=== PATIENT | female | born 1975 | race Caucasian/White ===

== ENCOUNTER 2016-05-23 22:51 | Inpatient (IN) | payer BC ==
[~2016-05-23] VITALS: Ht 167.6 cm; Wt 82.0 kg
[2016-05-23 23:03] VITALS: BP 129/72
[2016-05-23] MEDS ORDERED: PRENTAB9 PO (23:11)
[2016-05-23] MEDS ORDERED: LEVO88TA3 PO (23:11)
[2016-05-24] VITALS (56 sets, daily range): BP systolic 80–136; BP diastolic 49–76
[2016-05-24] MEDS ORDERED: FENTANYL 2MCG/ML ROPIVACAINE 0.2% NACL 250 ML CADD As Ordered ONE (00:01)
[2016-05-24] MEDS ORDERED: LR 1,000 ML IV SCH (00:23)
[2016-05-24] MEDS ORDERED: LACTATED RINGER'S 1000 ML IV STA (00:23)
[2016-05-24 00:52] LABS: MEAN CORPUSCULAR HEMOGLOBIN 31.9 pg (27.0-33.0); MEAN CORPUSCULAR HGB CONC 33.5 g/dl (32.0-36.5); MEAN CORPUSCULAR VOLUME 95.1 fl (80.0-96.0); RED CELL DISTRIBUTION WIDTH 13.5 % (11.5-14.5); WHITE BLOOD COUNT 11.9 K/mm3 (4.0-10.0)
--- NOTE | 2016-05-24 07:20 | HPE ---
DATE OF ADMISSION: 05/23/2016 REASON FOR ADMISSION: Labor. HISTORY OF PRESENT ILLNESS: Mrs. Wallace is a 40-year-old, 3, para 1, who presents at 40 weeks 0 days estimated gestational age by last menstrual period confirmed by a first trimester ultrasound with complaints of increasing contractions. She reports contractions which had started earlier throughout the afternoon and had increased in intensity and frequency throughout the evening. She reports active movement. She denies any vaginal bleeding or leakage of fluid. The course is only remarkable for advanced maternal age and hypothyroidism which has been well controlled. Her care was initiated in the first trimester and has been appropriate throughout. PAST MEDICAL HISTORY: Hypothyroidism. PAST SURGICAL HISTORY: She has had a dilation and curettage for a miscarriage. MEDICATIONS: - levothyroxine - vitamins ALLERGIES: No known drug allergies. OBSTETRICAL HISTORY: She is a 3, para 1. She has had 1 term vaginal delivery that was assisted with the vacuum. She is proven to 8 pounds 7 ounces. She has had a miscarriage. SOCIAL HISTORY: Denies any alcohol, tobacco or drug use during her . PHYSICAL EXAMINATION: Her vital signs are stable. She is afebrile. She has a Category 1 heart rate tracing with irregular contractions on tocometer. General Appearance: Is well appearing in no acute distress. Her lungs are clear to auscultation bilaterally. Cardiovascular: Heart regular rate and rhythm. Abdomen soft, gravid, nontender. Estimate weight (EFW) 3700 grams. On cervical exam, she was 3 cm dilated, 80% effaced, with bulging bag of membranes. LABS: Blood type is A positive. Antibody screen is negative. Rubella is immune. RPR nonreactive. Hepatitis surface antigen negative. HIV negative. Chlamydia and gonorrhea negative. She had a normal one hour Glucola. She is GBS negative. ASSESSMENT: 1. Mrs. Wallace is a 40-year-old, 3, para 1, at 40 weeks 0 days estimated gestational age in labor. 2. Reassuring status. PLAN: 1. To admit to labor and delivery. CBC, RPR and type and screen. 2. Patient is a good candidate for an epidural. 3. Anticipate spontaneous vaginal delivery.
[2016-05-24] MEDS ORDERED: REFRIGERATOR IV KEYS XX PRN (07:45)
[2016-05-24] MEDS ORDERED: NALOXONE INJ 0.4 MG/1 ML VIAL (J2310) IV PRN (07:45)
[2016-05-24] MEDS ORDERED: EPIDURAL COMMENT XX SCH (07:45)
[2016-05-24] MEDS ORDERED: ePHEDrine SULFATE 25 MG/5 ML(5MG/ML) SYRINGE IV PRN (07:45)
[2016-05-24] MEDS ORDERED: LACTATED RINGER'S 1000 ML IV PRN (07:45)
[2016-05-24] MEDS ORDERED: FENTANYL/ROPIVACAINE/NACL CADD 250 ML EPIDURAL SCH (07:45)
[2016-05-24] MEDS ORDERED: ONDANSETRON 4MG/2ML VIAL (J2405) IV PRN ×2 (07:45→10:45)
[2016-05-24] MEDS ORDERED: EPIDURAL/PCA KEYS XX PRN (07:45)
[2016-05-24] MEDS ORDERED: diphenhydrAMINE INJ 50MG/ML VIAL (J1200) IV PRN (07:45)
[2016-05-24] MEDS ORDERED: OXYTOCIN 30 UNITS IN 0.9% NaCl 500ML IV BAG (J2590) As Ordered ONE (08:44)
[2016-05-24] MEDS: PRENATAL VITAMIN TAB PO SCH (09:00)
[2016-05-24] MEDS ORDERED: OXYTOCIN DRIP 30 UNITS in APPROPRIATE DILUENT 1 EA IV ONE ×4 (10:31)
[2016-05-24] MEDS: LR 1,000 ML IV SCH ×3 (10:31→19:19)
[2016-05-24] MEDS ORDERED: RHOGAM 300 MCG (1500 IU) INJ (J2790) IM SCH (10:45)
[2016-05-24] MEDS ORDERED: PROMETHAZINE 25 MG TAB PO PRN (10:45)
[2016-05-24] MEDS ORDERED: DIBUCAINE 1% OINTMENT 30GM TOP PRN (10:45)
[2016-05-24] MEDS ORDERED: MEASLES,MUMPS,RUBELLA VACCINE INJ (MMR-II) (90707) SC SCH (10:45)
[2016-05-24] MEDS ORDERED: DOCUSATE SODIUM 100 MG CAP PO PRN (10:45)
[2016-05-24] MEDS: IBUPROFEN 800 MG TAB PO PRN (16:06)
[2016-05-24] MEDS: ACETAMINOPHEN 500 MG TAB PO PRN (21:39)
[2016-05-25] MEDS: LEVOTHYROXINE 0.088 MG TAB (88 MCG) PO SCH (05:45)
[2016-05-25 05:58] VITALS: BP 103/51
[2016-05-25] MEDS: IBUPROFEN 800 MG TAB PO PRN (08:10)
[2016-05-25] MEDS: PRENATAL VITAMIN TAB PO SCH (08:10)
[2016-05-25 15:50] VITALS: BP 128/60
[2016-05-25 17:47] VITALS: BP 118/56
[2016-05-26] MEDS: ACETAMINOPHEN 500 MG TAB PO PRN (01:43)
[2016-05-26 05:13] VITALS: BP 121/60
[2016-05-26] MEDS: LEVOTHYROXINE 0.088 MG TAB (88 MCG) PO SCH (05:48)
[2016-05-26] MEDS: IBUPROFEN 800 MG TAB PO PRN (07:30)
[2016-05-26] MEDS: PRENATAL VITAMIN TAB PO SCH (07:30)
[2016-05-26] MEDS ORDERED: MOM 30ML SUSPENSION UDC PO PRN (08:00)
[2016-05-26] MEDS ORDERED: IBUP-1114 PO (08:45)
[2016-05-26] MEDS ORDERED: ACET50TA PO (08:45)
--- NOTE | 2016-05-26 11:33 | REP ---
Pelvic ultrasound, non OB, 05/26/2016 Indication: Left-sided pain, . Possible dermoid early in Comparison: made with prior OB ultrasounds 02/23/2016, 01/03/2016 Findings: Study performed transabdominally Uterus measures 18.9 cm by 8.9 cm x 14.6 cm dimension, and is enlarged, consistent with recent delivery . Endometrium is 10.7 mm in thickness and smooth. Uterus is anteverted. Right ovary measures 4.4 x 2.6 x 3.3 cm, with resistive index 0.43. Left ovary measures 5.8 x 3.6 x 5.2 cm and contains hyperechoic ovoid structure with internal cystic changes calcifications, measuring 4.4 by 3.2 x 4.6 cm. There is some posterior acoustic shadowing and this is consistent with dermoid containing fat, cystic areas ,and calcification . Resistive index in the left ovary is 0.51. Perfusion is noted to the bilateral ovaries, therefore no evidence of torsion. There is no free fluid in cul-de-sac Impression 1. Large uterus consistent with state. Endometrium 10.7 mm in thickness and smooth. 2. 4.4 x 3.2 x 4.6 cm left ovarian dermoid. Right ovary is unremarkable. There is no ovarian torsion bilaterally 3. No free fluid in cul-de-sac Signed by Lori Wiggins MD 05/26/2016 11:25 A
[2016-05-26] MEDS ORDERED: OXYC1TAB23 PO (11:52)
[2016-05-26] MEDS ORDERED: PERCOCET 5MG/325MG TAB PO PRN (12:00)
== END 2016-05-26 12:15 | disposition home or self-care (01) | DRG 560 ==
LOC: M LDO 22:51 → M LDI 23:40 → M OBS 05-24 13:10
PROVIDERS: ADMIT Obstetrics & Gynecology; ATTEND Obstetrics & Gynecology
PROC: 10E0XZZ Delivery of Products of Conception, External Approach (ICD-10-PCS; principal; 2016-05-24)
PROC: 0HQ9XZZ Repair Perineum Skin, External Approach (ICD-10-PCS; 2016-05-24)
DX: O99.284 Endocrine, nutritional and metabolic diseases complicating childbirth (principal); E03.9 Hypothyroidism, unspecified; Z37.0 Single live birth; Z3A.40 40 weeks gestation of pregnancy; Z79.899 Other long term (current) drug therapy; O69.82X0 Labor and delivery complicated by other cord entanglement, without compression, not applicable or unspecified; O70.0 First degree perineal laceration during delivery

== ENCOUNTER → 2016-06-12 | Day surgery (SDC) | payer BC ==
[~2016-06-12] VITALS: Ht 167.6 cm; Wt 73.5 kg
[~2016-06-12] MED LIST: ACET50TA PO; BUPIVACAINE HCL 0.25% 30 ML VIAL As Ordered ONE; GLYCOPYRROLATE INJ 0.2 MG/ML 2 ML VIAL As Ordered ONE; HYDROmorphone HCL 2 MG/ML 1ML VIAL (J1170) As Ordered ONE; IBUP-1114 PO; KETOROLAC 60 MG/2 ML VIAL (J1885) As Ordered ONE; LEVO88TA3 PO; LIDOCAINE 2% INJ 100 MG/5 ML SDV (FOR ANES.) As Ordered ONE; LR 1,000 ML IV SCH; MEPERIDINE INJ 25 MG/ML VIAL (J2175) IV PRN; METOCLOPRAMIDE INJ 10MG/2ML VIAL (J2765) As Ordered ONE; METOCLOPRAMIDE INJ 10MG/2ML VIAL (J2765) IV PRN; MIDAZOLAM INJ 2 MG/2 ML VIAL (J2250) As Ordered ONE; NEOSTIGMINE 1MG/ML 5 ML SYRINGE (J2710) As Ordered ONE; ONDANSETRON 4MG/2ML VIAL (J2405) As Ordered ONE; ONDANSETRON 4MG/2ML VIAL (J2405) IV PRN; OXYC1TAB23 PO; PERCOCET 5MG/325MG TAB PO PRN; PERCOCET PO; PRENTAB9 PO; PROPOFOL 500 MG/50 ML VIAL As Ordered ONE; ROCURONIUM BROMIDE 50 MG/5 ML VIAL As Ordered ONE; dexameTHASONE 4 MG/ML 1ML VIAL (J1100) As Ordered ONE; fentaNYL 100 MCG/2 ML INJECTION (J3010) As Ordered ONE
[2016-06-12 09:37] LABS: MEAN CORPUSCULAR HEMOGLOBIN 31.5 pg (27.0-33.0); MEAN CORPUSCULAR VOLUME 95.3 fl (80.0-96.0); RED CELL DISTRIBUTION WIDTH 11.6 % (11.5-14.5); WHITE BLOOD COUNT 6.3 K/mm3 (4.0-10.0)
[2016-06-12] MEDS: fentaNYL 100 MCG/2 ML INJECTION (J3010) IV PRN ×2 (11:57→12:02)
--- NOTE | 2016-06-12 13:54 | RO ---
DATE OF PROCEDURE: 06/12/2016 PREPROCEDURE DIAGNOSIS: Left ovarian dermoid cyst. POSTPROCEDURE DIAGNOSIS: Left ovarian dermoid cyst. PROCEDURE: Laparoscopy, left oophorectomy. SURGEON: Dr. Curt Muhammad. MORGUE ATTENDANT: ANESTHESIA: General endotracheal. ESTIMATED BLOOD LOSS: Minimal. FINDINGS: 4 to 5 cm dermoid cyst involving the left ovary. No normal appearing ovarian tissue identified. Ovarian cyst composed of fat, hair and teeth. Normal appearing uterus. Normal right ovary and fallopian tube. Normal left fallopian tube. Normal upper abdomen. OPERATIVE SUMMARY: The patient was taken to the operating room where general endotracheal anesthesia was induced. She was prepped and draped in a sterile fashion in the dorsal lithotomy position. Ybarra catheter was placed. A Hulka uterine tenaculum was placed. Periumbilical incision was made with a scalpel. A Veress needle was inserted through this incision. A pneumoperitoneum was created. Veress needle was removed. A 10 mm trocar was placed through this incision and 10 mm scope with camera was used to visualize the abdomen and pelvis with the findings noted above. Two 5 mm suprapubic ports were placed under direct visualization. A grasping instrument was used to evaluate the ovary. Decision was made to remove the entire ovary because there was no normal appearing ovarian tissue present. Harmonic scalpel was used to grasp the IP ligament close to its insertion into the ovary. The IP ligament was coagulated and incised. The utero-ovarian ligament was coagulated and incised. Specimen was free from its attachments. Specimen was placed in an Endo Catch bag and withdrawn through the umbilical port. The fascia of the umbilical port was closed with #0 Vicryl. Skin was closed with #4-0 Monocryl. All instruments were removed. Sponge, instrument and needle counts were correct. MTDD
[2016-06-12 14:30] VITALS: BP 135/61
== END | disposition home or self-care (01) ==
LOC: M SDC 09:09
PROVIDERS: ATTEND Specialist
DX: D27.9 Benign neoplasm of unspecified ovary (principal); E03.9 Hypothyroidism, unspecified; Z79.899 Other long term (current) drug therapy
CPT/HCPCS: 36415; 58661; 85027; 88307; J1100; J1170; J1885; J2250; J2405; J2710; J2765; J3010

== ENCOUNTER → 2020-06-06 | Outpatient (CLI) | payer SELFPAY ==
[~2020-06-06] MED LIST changes: -ACET50TA PO; -BUPIVACAINE HCL 0.25% 30 ML VIAL As Ordered ONE; -GLYCOPYRROLATE INJ 0.2 MG/ML 2 ML VIAL As Ordered ONE; -HYDROmorphone HCL 2 MG/ML 1ML VIAL (J1170) As Ordered ONE; -KETOROLAC 60 MG/2 ML VIAL (J1885) As Ordered ONE; -LIDOCAINE 2% INJ 100 MG/5 ML SDV (FOR ANES.) As Ordered ONE; -LR 1,000 ML IV SCH; +MAPA500T2 PO; -MEPERIDINE INJ 25 MG/ML VIAL (J2175) IV PRN; -METOCLOPRAMIDE INJ 10MG/2ML VIAL (J2765) As Ordered ONE; -METOCLOPRAMIDE INJ 10MG/2ML VIAL (J2765) IV PRN; -MIDAZOLAM INJ 2 MG/2 ML VIAL (J2250) As Ordered ONE; -NEOSTIGMINE 1MG/ML 5 ML SYRINGE (J2710) As Ordered ONE; -ONDANSETRON 4MG/2ML VIAL (J2405) As Ordered ONE; -ONDANSETRON 4MG/2ML VIAL (J2405) IV PRN; -PERCOCET 5MG/325MG TAB PO PRN; -PROPOFOL 500 MG/50 ML VIAL As Ordered ONE; -ROCURONIUM BROMIDE 50 MG/5 ML VIAL As Ordered ONE; -dexameTHASONE 4 MG/ML 1ML VIAL (J1100) As Ordered ONE; -fentaNYL 100 MCG/2 ML INJECTION (J3010) As Ordered ONE
== END ==
LOC: M LABSMTC 08:14
PROVIDERS: ATTEND Pediatrics
DX: Z20.822 Contact with and (suspected) exposure to COVID-19 (principal)

== ENCOUNTER → 2022-07-27 | Outpatient (REF) | payer BC | LOC: M SFHCWAGY 10:06 | PROVIDERS: ATTEND Nurse Practitioner Family | DX: Z12.4 Encounter for screening for malignant neoplasm of cervix (principal) | CPT/HCPCS: 87624; G0123 ==

== ENCOUNTER → 2022-07-27 | Outpatient (CLI) | payer BC | LOC: M WHC 14:39 | PROVIDERS: ATTEND Nurse Practitioner Family | DX: Z12.31 Encounter for screening mammogram for malignant neoplasm of breast (principal); R92.8 Other abnormal and inconclusive findings on diagnostic imaging of breast ==

== ENCOUNTER → 2022-08-09 | Outpatient (CLI) | payer BC | LOC: M WHC 10:55 | PROVIDERS: ATTEND Nurse Practitioner Family | DX: R92.8 Other abnormal and inconclusive findings on diagnostic imaging of breast (principal) | CPT/HCPCS: 77065; G0279 ==

== ENCOUNTER → 2023-05-07 | Outpatient (REF) | LOC: M EMP 10:26 | PROVIDERS: ATTEND Family Medicine | DX: Z11.52 Encounter for screening for COVID-19 (principal) ==

== ENCOUNTER → 2023-09-03 | Outpatient (CLI) | payer BC | LOC: M WHC 07:52 | PROVIDERS: ATTEND Nurse Practitioner Family | DX: Z12.31 Encounter for screening mammogram for malignant neoplasm of breast (principal); R92.323 Mammographic fibroglandular density, bilateral breasts ==

== ENCOUNTER → 2023-11-15 | Outpatient (CLI) | payer BC ==
[2023-11-15 07:50] LABS: BASO # 0.1 10^3/uL (0.0-0.2); BASO % 0.8 % (0.0-1.0); EOS # 0.1 10^3/uL (0.0-0.5); EOS % 1.9 % (0.0-3.0); HEMATOCRIT 40.2 % (36.0-47.0); HEMOGLOBIN 13.3 g/dl (12.0-15.5); LYMPH # 1.7 10^3/uL (1.5-5.0); LYMPH % 28.3 % (24.0-44.0); MEAN CORPUSCULAR HEMOGLOBIN 31.6 pg (27.0-33.0); MEAN CORPUSCULAR HGB CONC 33.1 g/dl (32.0-36.5); MEAN CORPUSCULAR VOLUME 95.5 fl (80.0-96.0); MONO # 0.5 10^3/uL (0.0-0.8); MONO % 8.1 % (2.0-8.0); NEUTROPHILS # 3.6 10^3/uL (1.5-8.5); NEUTROPHILS % 60.7 % (36.0-66.0); PLATELET COUNT, AUTOMATED 228 10^3/uL (150-450); RED BLOOD COUNT 4.21 10^6/uL (4.00-5.40); WHITE BLOOD COUNT 5.9 10^3/uL (4.0-10.0)
[2023-11-15 08:12] LABS: C REACTIVE PROTEIN QUANTITATIV < 0.40 MG/DL (<1.0)
[2023-11-15 08:13] LABS: IRON (FE) 84 UG/DL (50-170); PERCENT SATURATION 23.1 % (13.2-45.0); TOTAL IRON BINDING CAPACITY 363 UG/DL (250-425)
[2023-11-15 08:14] LABS: ALBUMIN 3.8 G/DL (3.2-5.2); ALKALINE PHOSPHATASE 39 U/L (46-116); ALT/SGPT 11 U/L (7.0-40); AST/SGOT < 8 U/L (<34); BILIRUBIN,TOTAL 0.9 MG/DL (0.3-1.2); BLOOD UREA NITROGEN 16 MG/DL (9-23); CALCIUM LEVEL 8.9 MG/DL (8.5-10.1); CARBON DIOXIDE LEVEL 29 MMOL/L (20-31); CHLORIDE LEVEL 105 MMOL/L (98-107); CHOLESTEROL LEVEL 189 MG/DL (<200); CHOLESTEROL RISK RATIO 3.85 (<5); CREATININE FOR GFR 0.71 MG/DL (0.55-1.30); GLOMERULAR FILTRATION RATE > 60.0 (>58); GLUCOSE, FASTING 108 MG/DL (60-100); LDL CHOLESTEROL 125.4 MG/DL (<100); POTASSIUM SERUM 4.2 MMOL/L (3.5-5.1); SODIUM LEVEL 139 MMOL/L (136-145); TOTAL PROTEIN 6.7 G/DL (5.7-8.2); TRIGLYCERIDES LEVEL 73 MG/DL (<150)
[2023-11-15 08:18] LABS: ERYTHROCYTE SEDIMENTATION RATE 7 mm/hr (0-20); FERRITIN 8.3 NG/ML (7.3-270.7); FREE T4 1.58 NG/DL (0.89-1.76); THYROID STIMULATING HORMONE 1.965 uIU/ML (0.55-4.78)
[2023-11-15 08:19] LABS: VITAMIN B12 LEVEL 379 PG/ML (211-911)
[2023-11-16 18:01] LABS: ANA SCREEN, IFA NEGATIVE (NEGATIVE)
== END ==
LOC: M LAB 06:21
PROVIDERS: ATTEND Physician Assistant
DX: Z00.00 Encounter for general adult medical examination without abnormal findings (principal); E03.9 Hypothyroidism, unspecified; M79.18 Myalgia, other site; R53.83 Other fatigue; Z82.69 Family history of other diseases of the musculoskeletal system and connective tissue; E78.00 Pure hypercholesterolemia, unspecified

== ENCOUNTER → 2024-05-06 | Outpatient (CLI) | payer BC ==
[2024-05-06 10:37] LABS: THYROID STIMULATING HORMONE 2.7 uIU/ML (0.55-4.78); TOTAL 25(OH) VITAMIN D 21.6 NG/ML (20.0-100.0)
[2024-05-06 10:40] LABS: FREE T4 1.41 NG/DL (0.89-1.76)
== END ==
LOC: M PLALAB 08:39
PROVIDERS: ATTEND Nurse Practitioner Family
DX: R53.83 Other fatigue (principal)

== ENCOUNTER → 2024-05-20 | Outpatient (REF) | payer BC | LOC: M LAB REF 12:11 | PROVIDERS: ATTEND Physician Assistant Medical | DX: B34.9 Viral infection, unspecified (principal) ==

== ENCOUNTER → 2024-08-20 | Outpatient (REF) | LOC: M EMP 07:47 | PROVIDERS: ATTEND Family Medicine | DX: Z11.52 Encounter for screening for COVID-19 (principal) ==

== ENCOUNTER → 2024-09-16 | Outpatient (REF) | payer BC ==
[2024-09-18 16:12] LABS: HPV APTIMA Not Detected (Not Detected)
== END ==
LOC: M SFHCWAGY 17:59
PROVIDERS: ATTEND Nurse Practitioner Family
DX: Z12.4 Encounter for screening for malignant neoplasm of cervix (principal); R87.610 Atypical squamous cells of undetermined significance on cytologic smear of cervix (ASC-US)
CPT/HCPCS: 87624; G0123

== ENCOUNTER → 2024-09-16 | Outpatient (CLI) | payer BC | LOC: M WHC 15:52 | PROVIDERS: ATTEND Nurse Practitioner Family | DX: Z12.31 Encounter for screening mammogram for malignant neoplasm of breast (principal); R92.333 Mammographic heterogeneous density, bilateral breasts ==

== ENCOUNTER → 2025-04-08 | Outpatient (REF) | payer BC | LOC: M SFHCPLAZ 13:04 | PROVIDERS: ATTEND Family Medicine | DX: E03.9 Hypothyroidism, unspecified (principal) ==